=== PATIENT | female | born 1940 | race Caucasian/White ===

== ENCOUNTER 2016-12-13 05:44 | Inpatient (IN) | payer OTHER ==
[2016-12-05 12:08] LABS: HEMATOCRIT 32.6 % (37.0-47.0); HEMOGLOBIN 11.5 gm/dL (12.0-15.0); MCH 35.9 pg (26.0-34.0); MCHC 35.2 g/dL (28.0-37.0); RBC 3.2 mil/uL (4.20-5.00); RDW 13.3 % (10.5-14.5); WBC 5.5 thou/uL (4.0-11.0)
[2016-12-05 12:16] LABS: ALBUMIN 3.7 g/dL (3.4-5.0); CALCIUM 9.5 mg/dL (8.5-10.1); CREATININE 1.1 mg/dL (0.6-1.0); POTASSIUM 5.5 mmol/L (3.5-5.1)
[2016-12-05 12:17] LABS: URINE BILIRUBIN NEGATIVE (Negative); URINE BLOOD NEGATIVE (Negative); URINE COLOR YELLOW; URINE GLUCOSE-RANDOM* NEGATIVE (Negative); URINE KETONES NEGATIVE (Negative); URINE LEUKOCYTES-REFLEX TRACE (Negative); URINE PROTEIN (DIPSTICK) NEGATIVE (Negative); URINE SPECIFIC GRAVITY <= 1.005 (1.003-1.035); URINE UROBILINOGEN 0.2 E.U./dl (0.2-1.0)
[~2016-12-13] VITALS: Ht 160 cm; Wt 69.9 kg
[2016-12-13] VITALS (9 sets, daily range): BP systolic 131–184; BP diastolic 50–93
--- NOTE | ~2016-12-13 | O ---
[facility] [place] [address] OPERATIVE REPORT Name: BLUE VALENCIA Room #: 544-P [facility] M.R.#: [id number] Admission: 12/13/16 Attend Phys: Fady Pulido MD Discharge: 12/16/16 Date of : 38 Report #: [id number] THIS REPORT FOR: //name// CC: [facility] physician/PCP Yumiko Pulido DATE OF SERVICE: 12/13/2016 PREOPERATIVE DIAGNOSIS: Right knee degenerative joint disease, severe. POSTOPERATIVE DIAGNOSIS: Right knee degenerative joint disease, severe. PROCEDURE: Right total knee arthroplasty. SURGEON: Fady Pulido MD. ANESTHESIA: General. INDICATIONS: See hospital H and P. IMPLANTS UTILIZED: We used a DePuy PFC knee system. We used a cruciate retaining femoral component, 4 narrow. We used a size 3 tibial tray with a 12.5 mm insert and a 38 mm oval dome patella. DESCRIPTION OF PROCEDURE: After adequate general anesthesia had been obtained, the patient's right lower extremity was prepped and draped in the usual meticulous sterile fashion. Limb was exsanguinated with gravity, tourniquet inflated to 350 torr. Anterior midline incision was made, subQ divided sharply. Hemostasis obtained with electrocautery. Medial parapatellar incision was made. Infrapatellar fat pad excised. Medial release performed at the level of joint only due to the patient's valgus deformity. We then flexed the knee and drilled the distal femur. This hole was enlarged, irrigated, suctioned, and the intramedullary guide placed the full length of the femur. The distal femoral cutting guide was set at 70 degrees of valgus. The patient was hypoplastic laterally. We placed in appropriate rotation, pinned it into position and made a distal femoral cut. We used the measuring device and determined the size 4 as appropriate size for this patient. We marked the distal femur with care taken to ensure adequate external rotation, impacted the cutting guide into place and the anterior, posterior and chamfer cuts were made. Rongeur was used to remove additional osteophytes. At this time, the ACL was transected, tibia translated anteriorly, menisci were excised. Drill was used to drill central portion of the tibia. This hole was enlarged, irrigated, suctioned, and the intramedullary guide placed upon the tibia. Proximal tibial cutting guide placed at appropriate height. Proximal [facility] [address] [place] [address] OPERATIVE REPORT Name: BLUE VALENCIA Room #: 544-P [facility] IN M.R.#: [id number] Admission: 12/13/16 Attend Phys: Fady Pulido MD Discharge: 12/16/16 Date of : 38 Report #: [id number] tibia cut was made, 3 tray gave us the best coverage on the tibia. With the trial components in position with a 12.5 spacer, she had the flexion and extension gap, and had full extension. We then addressed the patella. The rongeur was used to remove significant osteophytes. The patella was measured, cutting guide clamped into place, patellar cut was made. 38 template gave us the best coverage. Pedicles were drilled, trial component put in position. We then took the knee through several cycles of flexion and extension. Patella tracked normally. Tibial tray rotation marked, distal femur drilled, trial components were removed. Tibial keel cuts were made. We irrigated the knee with both pulse lavage and antibiotic irrigation. We placed bone plugs in the proximal tibia and distal femur. We irrigated with antibiotic irrigation and allowed to rest in the wound and we mixed the cement under vacuum. When it reached the appropriate consistency, the knee was thoroughly dried, the tibial tray was cemented in place and excess cement was removed. The tibial spacer was impacted in place and then, the femur was impacted in place and then, the knee was taken out to 30 degrees of flexion with uniform compression placed across components. Patellar button was then cemented into place and again, excess cement was removed. At this time, irrigation was placed in the wound and allowed to rest in the wound until the cement fully cured. When it had done so, the knee was irrigated, dried thoroughly, and inspected. Drains were placed superolaterally both deep and superficial. The retinacular layer closed with combination of interrupted [id number] #1 Vicryl as well as running #1 Tevdek. SubQ closed with 2-0 Monocryl, skin closed with natty. Sterile compressive dressing was applied. Tourniquet deflated. <ELECTRONICALLY SIGNED> By: Fady Pulido MD 12/19/16 1316 [id number] Fady Pulido MD /nt
[~2016-12-13 05:44] MED LIST: AMLODIPINE BESY10 MG PO; ARNICA MONTANA PO; CITRACAL + D E1 EACH PO; COUMADIN 2 MG TA2 M1 PO; COUMADIN 5 MG TA5 M1 PO; DICLOFENAC SODI75 MG PO; DOLOPHINE HCL10 MG PO; DULCOLAX5 MG PO; ESTRADIOL 1 MG T1 MG PO; FISH OIL 1,001000 M2 PO; FLONASE 0.05%50 MCG NASAL; FLOVENT IH; FOLIC ACID 40400 MC1 PO; HYDROCODONE-AP1 EA11 PO; IRON PO; KONSYL1 EACH PO; LIPITOR10 MG PO; METHADONE HCL 110 M1 PO; MIRAPEX0.25 MG PO; NEURONTIN 300M300 M2 PO; NEURONTIN600 MG PO; PERCOCET 7.5-31 EACH; PLAVIX 75 MG TA75 M1 PO; PRILOSEC 20 MG20 MG PO; PROTONIX40 M4 PO; PROVERA5 MG PO; PULMICORT FLE180 MCG IH; RELAFEN500 MG PO; THERAGRAN-M AD1 EAC2 PO; TOPROL XL100 MG PO; VITAMIN B-121000 MCG PO; VITAMIN D31000 UNI2 PO; VITAMIN E400 UNIT PO; VOLTAREN GEL 1100 G2 TOP
[2016-12-14] VITALS (8 sets, daily range): BP systolic 119–151; BP diastolic 49–91
[2016-12-14 05:41] LABS: HEMATOCRIT 27.7 % (37.0-47.0); HEMOGLOBIN 9.7 gm/dL (12.0-15.0); MCHC 34.9 g/dL (28.0-37.0); MCV 103.2 fL (80.0-100.0); RBC 2.68 mil/uL (4.20-5.00); RDW 13.3 % (10.5-14.5); WBC 10.2 thou/uL (4.0-11.0)
[2016-12-15 04:00] VITALS: BP 154/52
[2016-12-15 06:00] LABS: HEMATOCRIT 24.2 % (37.0-47.0); HEMOGLOBIN 8.4 gm/dL (12.0-15.0); MCH 36.1 pg (26.0-34.0); MCHC 34.8 g/dL (28.0-37.0); MCV 103.7 fL (80.0-100.0); RBC 2.33 mil/uL (4.20-5.00); RDW 13.5 % (10.5-14.5); WBC 9.6 thou/uL (4.0-11.0)
[2016-12-15 08:00] VITALS: BP 155/49
[2016-12-15 08:25] VITALS: BP 154/52; BP 155/49
[2016-12-15 09:20] VITALS: BP 155/49
[2016-12-15 15:46] VITALS: BP 143/53
[2016-12-15 19:37] VITALS: BP 139/47
[2016-12-16 04:40] VITALS: BP 151/54
[2016-12-16 05:46] LABS: HEMATOCRIT 25.5 % (37.0-47.0); HEMOGLOBIN 8.9 gm/dL (12.0-15.0); MCH 36.1 pg (26.0-34.0); MCV 103.1 fL (80.0-100.0); RBC 2.47 mil/uL (4.20-5.00); RDW 13.4 % (10.5-14.5); WBC 9.8 thou/uL (4.0-11.0)
[2016-12-16] MEDS ORDERED: XARELTO10 MG PO (07:55)
[2016-12-16] MEDS ORDERED: HYDROCODONE-APA1 TA1 PO (07:57)
== END 2016-12-16 13:30 | disposition home health service (06) | DRG 470 ==
LOC: 5S 05:44 → TBA 05:44 → PRE 11:25 → 5S 13:18 → PRE 15:30 → 5S 12-16 13:30
PROVIDERS: Orthopaedic Surgery
PROC: 0SRC0J9 Replacement of Right Knee Joint with Synthetic Substitute, Cemented, Open Approach (ICD-10-PCS; principal; 2016-12-13)
DX: M17.11 Unilateral primary osteoarthritis, right knee (principal); K59.00 Constipation, unspecified; I10 Essential (primary) hypertension; Z86.73 Personal history of transient ischemic attack (TIA), and cerebral infarction without residual deficits; Z88.8 Allergy status to other drugs, medicaments and biological substances; Z88.2 Allergy status to sulfonamides; Z91.02 Food additives allergy status; Z91.040 Latex allergy status
CPT/HCPCS: 10785; 50010; 50101; 50415; 50954; 51130; 51225; 51320; 51412; 51771; 52001; 52282; 53000; 53078; 53364; 56525; 56527; 62110; 62900; 70005